=== PATIENT | male | born 1960 | race Native Hawaiian/Other Pacific Islander ===

== ENCOUNTER 2021-04-27 11:16 | Inpatient (IN) | payer BC, OTHER ==
[~2021-04-27] VITALS: Ht 175.3 cm; Wt 78.9 kg
[2021-04-27 11:21] VITALS: BP 123/76; TEMP 98.3
[2021-04-27 12:07] LABS: PLATELET COUNT 323 K/uL (142-355)
[2021-04-27 12:37] LABS: POTASSIUM 3.5 mmol/L (3.6-5.2); SODIUM 132 mmol/L (136-145)
--- NOTE | 2021-04-27 19:57 | NUR ---
PATIENT ADMITTED TO ROOM# 1111 VIA STRETCHER FROM THE ER. PATIENT ALERT AND ORIENTED X 3 AND C/O SHORTNESS OF BREATH AND LOSS OF SENSE OF TASTE AND SMELL X 12 DAYS. PATIENTS OXYGEN SATURATION DROPPED DOWN INTO 80'S AFTER BEING MOVED, RT AT THE BEDSIDE AND INCREASED HIS HIGH FLOW TO 100%. AFTER APPROXIMATELY 20 MINUTES PATIENTS SATS NOW 98-99% AND HIGH FLOW DECREASED BACK DOWN 75% AND PATIENTS OXYGEN SATURATION NOW STAYING AT 96-97% AND PATIENT RESTING WELL AT THIS TIME. PATIENT ORIENTED TO ROOM AND CALL SYSTEM AND VERBALIZES UNDERSTANDING AND DENIES ANY COMPLAINTS OR REQUESTS AT THIS TIME. CALL LIGHT WITHIN REACH. WILL CONTINUE TO MONITOR.
--- NOTE | 2021-04-27 22:14 | NUR ---
PT MOVED FROM ER TO 111 HIS SPO2 WAS IN LOW 80s increased him to 100% at 2029. went back at 2114 pt resting spo2 is 100%. so decreased his fio2 to 75%. zaki continue to monitor.
[2021-04-28] VITALS (7 sets, daily range): BP systolic 104–144; BP diastolic 66–75; TEMP 97.5–98.3; Ht 175.3 cm; Wt 78.9 kg
[2021-04-28 04:22] LABS: PLATELET COUNT 318 K/uL (142-355)
[2021-04-28 04:27] LABS: POTASSIUM 3.7 mmol/L (3.6-5.2)
[2021-04-28 09:45] LABS: PLATELET COUNT 360 K/uL (142-355)
[2021-04-28 10:29] LABS: POTASSIUM 3.7 mmol/L (3.6-5.2)
--- NOTE | 2021-04-28 17:58 | NUR ---
RECEIVED REPORT FROM NURSE Kandace CLEVELAND AT 1400 PRIOR TO TAKING PT. PT A&O. LAYING PRONE IN BED PER PHYSICAL THERAPY TO INCREASE O2 SATS FROM 80s TO 90s. NO NAD NOTED. DENIES ANY PAIN/DISCOMFORT. IVF INFUSING AT 83ML/HR AND IV SITE TO LEFT HAND INTACT WITH NO SWELLING OR REDNESS NOTED. FAMILY VISITING PT AT ROOM WINDOW. PT COMPLIANT WITH MEDS AND TREATMENT. CONTINUE TO MONITOR.
[2021-04-29] VITALS (7 sets, daily range): BP systolic 104–118; BP diastolic 63–70; TEMP 97.3–98.3
[2021-04-29 04:49] LABS: PLATELET COUNT 414 K/uL (142-355)
[2021-04-29 04:52] LABS: POTASSIUM 4.1 mmol/L (3.6-5.2)
--- NOTE | 2021-04-29 05:05 | NUR ---
HELD CPT AT THIS TIME DUE TO SPO2 DROPPING.
--- NOTE | 2021-04-29 07:45 | NUR ---
Pt. RESTING WITH HIGH O2 ON. STATES "I FEEL A LITTLE BETTER. I THOUGGHT I WAS GOING TO ."
--- NOTE | 2021-04-29 11:00 | NUR ---
ASSIST Pt. UP OUT OF BED TO SIT IN CHAIR. O2 SAT DECREASE TO 88 BUT RECOVERED AFTER SITTING FOR 5 MINUTES.
--- NOTE | 2021-04-29 13:45 | NUR ---
REMOVE O2. SAT DECREASED TO 87% RESTING.
--- NOTE | 2021-04-29 15:09 | NUR ---
TURN FIO2 DOWN FROM 100% FROM 80% AND LPM FROM 50 TO 45LPM. PT AT BEDSIDE DOING CPT AT THIS TIME.SATS 99% AND HR 68.
--- NOTE | 2021-04-29 22:24 | NUR ---
DECREASED FIO2 TO 75% SPO2 93% NURSE NOTIFIED.
[2021-04-30 04:28] VITALS: BP 109/64; TEMP 98.1
[2021-04-30 04:41] LABS: POTASSIUM 4.2 mmol/L (3.6-5.2)
[2021-04-30 04:48] LABS: PLATELET COUNT 396 K/uL (142-355)
[2021-04-30 08:00] VITALS: BP 116/71; TEMP 97.5
--- NOTE | 2021-04-30 08:17 | NUR ---
DECREASED PT FIO2 TO 65% AT [address] MANNING.
--- NOTE | 2021-04-30 09:58 | NUR ---
HAD TO INCREASE FIO2 BACK TO 75% AROUND 0830 DUE TO SPO2 DROPPING.
[2021-04-30 12:00] VITALS: BP 118/76; TEMP 97.5
--- NOTE | 2021-04-30 14:40 | NUR ---
04/30/21 1440 AWAKE ALERT WATCHING T.V. PT SAID HE SIT UP ON SIDE OF BED AND IT FELT GOOD TO MOVE AROUND.CALL LIGHT WITH REACH.CC
--- NOTE | 2021-04-30 15:43 | NUR ---
04/30/21 1540 PT FAMILY AT WINDOW TO VISIT BROUGHT SOME CLEAN CLOTHES FOR PATIENT5.NAD NOTED.CC
[2021-04-30 16:00] VITALS: BP 118/75; TEMP 97.8
--- NOTE | 2021-04-30 17:07 | NUR ---
PT FIO2 DROPPED TO 65% AT THIS TIME PER DR. MANNING.
--- NOTE | 2021-04-30 17:26 | NUR ---
04/30/21 1726 PT COUGHING AFTER USING IS WAS ABLE TO SPIT UP WHITE MUCUS.ENCOURAGED TO CONTINUE USING FREQUENTLY.CC
[2021-04-30 20:29] VITALS: BP 152/83; TEMP 98.3
[2021-05-01] VITALS: BP 124/81; TEMP 97.7
--- NOTE | 2021-05-01 01:35 | NUR ---
PT HAS BEEN COUGHING. EXPELLING THICK YELLOW SECRETIONS. PT WAS GIVEN TUSSINEX PO EARLIER. PT RESPONDS TO SMART VEST THERAPY. O2 SAT IS 94 PERCENT.
[2021-05-01 04:24] VITALS: BP 120/75; TEMP 97.7
[2021-05-01 04:53] LABS: PLATELET COUNT 397 K/uL (142-355)
[2021-05-01 05:05] LABS: POTASSIUM 4.3 mmol/L (3.6-5.2)
[2021-05-01 08:00] VITALS: BP 133/81; TEMP 98.1
[2021-05-01 12:00] VITALS: BP 116/72; TEMP 97.6
--- NOTE | 2021-05-01 12:45 | NUR ---
PT'S O2 SAT BEGAIN TO DROP INTO THE MID-LOWER 80'S RANGE. RESPIRATORY WAS CONTACTED AND WENT TO PT'S ROOM. PT WAS EATING LUNCH AND WAS NOT ABLE TO MAINTAIN AN O2 SAT OVER 85%. RESPIRATORY TURNED THE HIGH FLOW UP TO 100% AND WILL TURN IT BACK DOWN AFTER PT IS FINISHED WITH LUNCH.
--- NOTE | 2021-05-01 12:48 | NUR ---
INCREASED PT FIO2 TO 100% WHILE EATING BBECUSE SATS DROPPED INTO 80s. he is now 91%.
--- NOTE | 2021-05-01 14:30 | NUR ---
PT HAS GIVEN HIMSELF A BED BATH USING A BASIN OF WARM WATER, SOAP, AND WASHCLOTH. PT HAS DRESSED HIMSELF AND CALLED TO HAVE CORE MANAGER HOOK HIS TELEMETRY BACK ON. WHEN CORE MANAGER ARRIVED TO THE ROOM, PT WAS LABORED IN BREATHING AND O2 SAT WAS AT 82%. AFTER CORE MANAGER PLACED CLEAN LINENS ON THE BED AND HOOKED PT BACK UP TO TELEMETRY, CORE MANAGER HELPED PT BACK INTO THE BED AND PRACTICED DEEP BREATHING EXERCISES AND REMAINED WITH PT UNTIL O2 SAT WAS AT 87%.
[2021-05-01 16:00] VITALS: BP 124/78; TEMP 97.2
--- NOTE | 2021-05-01 17:07 | NUR ---
PT CALLED TO NURSES' STATION COMPLAINING OF HEARTBURN. PT HAD BEEN GIVEN THIAMINE 20 MG IVP AND FLUVOXINE 50 MG PO 20 MIN PRIOR. FLIGHT TEST SUPERVISOR NOTIFIED PHYSICIAN AND PHYSICIAN ORDERED FOR A GI CONTACT. WHILE FLIGHT TEST SUPERVISOR WAS ADMINISTERING GI COCKTAIL PT STATED THAT THE PAIN WAS AN 8 ON A SCALE OF 0-10 AND IT WAS A BURNING PAIN. PHYSICIAN WAS NOTIFIED AND CAME TO THE PT'S ROOM TO ASSESS. AN EKG WAS ORDERED. WILL CONTINUE TO MONITOR.
--- NOTE | 2021-05-01 18:00 | NUR ---
PT STATES THAT HE IS STILL EXPERIENCING CHEST BUT NOT INTENSE. PT RATED THE PAIN AT A 4 ON A SCALE OF 0-10. WILL CONTINUE TO MONITOR.
--- NOTE | 2021-05-01 20:00 | NUR ---
PM ASSESSMENT WAS COMPLETED. PT WITH NO COMPLAINTS OF CHEST PAIN OR ANY OTHER DISCOMFORT. PT AWAKE SITTING UP ON SIDE OF THE BED. PT IS ADMITTED WITH PNEMONIA/COVID. PT WAS ADMITTED ON THE . THIS IS DAY 5. PT IS RECEIVING REMDESIVIR. PT IS USING HI FLOW OXYGEN. ENCOURAGED PT TO TCDB. PT VOICED UNDERSTANDING. SMART VEST THERAPY IN USE. PT IS COUGHING UP THICK WHITE CLEAR SPUTUM. BEDSIDE TABLE IN EASY REACH. CALL LIGHT IN REACH.
[2021-05-01 20:29] VITALS: BP 116/70; TEMP 97.7
[2021-05-02] VITALS: BP 132/85; TEMP 98.1
[2021-05-02 04:29] VITALS: BP 120/76; TEMP 97.6
[2021-05-02 05:41] LABS: PLATELET COUNT 405 K/uL (142-355)
[2021-05-02 06:16] LABS: POTASSIUM 4.8 mmol/L (3.6-5.2)
--- NOTE | 2021-05-02 06:21 | NUR ---
IV RESTARTED TO PT'S RIGHT HAND WITH 20G .
[2021-05-02 08:00] VITALS: BP 118/67; TEMP 97.9
--- NOTE | 2021-05-02 09:55 | NUR ---
PT CHANGED BACK TO [address] MANNING. POX 92%. PT NURSE INFORMED OF CHANGE.
--- NOTE | 2021-05-02 10:13 | NUR ---
PT IN RM WITH PT PERFORMING CPT
[2021-05-02 12:00] VITALS: BP 98/49; TEMP 98.4
[2021-05-02 16:00] VITALS: BP 121/76; TEMP 97.3
--- NOTE | 2021-05-02 17:30 | NUR ---
PATIENT HIGH FLOW AT 40L @ 50% NC. PATIENT O2 SAT MAINTAINING AT 93-94%. PATIENT SITTING IN HF NAD NOTED. NONLABORED BREATHING NOTED. CALL LIGHT WITHIN REACH. WILL CONTINUE TO MONITOR.
[2021-05-02 19:00] VITALS: BP 120/73; TEMP 98.4
[2021-05-03] VITALS (7 sets, daily range): BP systolic 110–136; BP diastolic 70–88; TEMP 97.6–98.7
[2021-05-03 05:42] LABS: PLATELET COUNT 445 K/uL (142-355)
[2021-05-03 06:08] LABS: POTASSIUM 4.7 mmol/L (3.6-5.2)
--- NOTE | 2021-05-03 07:55 | NUR ---
RESPIRATORY IN PT ROOM DUE TO O2 SAT AT 86-89%. RESPIRATORY CHANGED HIGH FLOW SETTING TO 40L @66%. PT O2 SAT NOW MAINTAINING AT 92-93%. WILL CONTINUE TO MONITOR.
--- NOTE | 2021-05-03 11:22 | NUR ---
FIO2 DROPPED TO 50% FROM 66% PER DR MANNING REQUEST. NURSE TOLD AND NURSE INFORMED OF Pt SpO2 DROPPING TO 91% @ THIS TIME. NO DISTRESS NOTED. DEBBIE DRESS FINISHER
--- NOTE | 2021-05-03 11:30 | NUR ---
DR. MANNING ORDERS TO NOT INCREASE SETTING ON HIFLOW O2 IF PT O2 DESAT, SHE STATES TO ASSESS PT FOR SOB AND IF HR RATE INCREASES AND TO ALLOW PT TO RECOVER BY ASSISTING PT WITH TCDB, WEAN PT DOWN TO NC 3-4L
--- NOTE | 2021-05-03 14:21 | NUR ---
UNABLE TO PLACE NC ON Pt AT THIS TIME DUE TO SpO2 OF 82% ON HFNC. NO DISTRESS NOTED. PHYSICAL THERAPY JUST FINISHED WORKING WITH Pt. Pt TAKING DEEP BREATHES IN TO IMPROVE SpO2 BRINGING IT UP TO 88% ON HHFNC @ 50% FIO2.UNABLE TO WEAN Pt FIO2 AT THIS TIME. DANITZAJ [employer]Y SUPERVISOR
[2021-05-04 03:41] VITALS: BP 122/87; TEMP 97.8
[2021-05-04 04:40] LABS: PLATELET COUNT 425 K/uL (142-355)
[2021-05-04 05:23] LABS: POTASSIUM 4.5 mmol/L (3.6-5.2)
[2021-05-04 08:00] VITALS: BP 115/80; TEMP 97.6
[2021-05-04 12:00] VITALS: BP 132/78; TEMP 97.7
[2021-05-04 16:00] VITALS: BP 102/65; TEMP 98.6
[2021-05-04 20:28] VITALS: BP 105/69; TEMP 97.8
[2021-05-05 00:05] VITALS: BP 100/62; TEMP 98.6
--- NOTE | 2021-05-05 01:22 | NUR ---
PT ADMITTED FOR COVID PNEUMONIA ON 04/27/2021. PT IS PRESENTLY USING 02 VIA NASAL CANNULA. PT'S 02 SATS ARE 90 T0 98 PERCENT. PT DOES DROP IN O2 SATS WHEN GETTING UP OUT OF BED TO [facility]. PT IS RECEIVING PHYSICAL THERAPY. PT DOES RECOVER WHEN ACTIVITY IS COMPLETED. PT ENCOURAGED TO TAKE DEEP BREATHS. PT HAD LARGE STOOL THIS SHIFT. PT IS EATING 100 PERCENT OF HIS MEALS. BEDSIDE TABLE IN EASY REACH.
--- NOTE | 2021-05-05 01:56 | NUR ---
PT UOB TO BSC. PT LARGE BROWN FORMED STOOL. PT USING NC AT 5L . O2 SATS DROP WITH ACTIVITY. RECOVERS QUICKLY THIS TIME WITH INSTRUCTIONS TO TAKE DEEP BREATHS AND REST. PT IS 92 PERCENT WITH REST.
[2021-05-05 04:07] VITALS: BP 100/66; TEMP 98.2
--- NOTE | 2021-05-05 05:07 | NUR ---
PT RESTING USING NC AT 5L.
[2021-05-05 05:18] LABS: PLATELET COUNT 325 K/uL (142-355)
[2021-05-05 05:27] LABS: POTASSIUM 4.3 mmol/L (3.6-5.2)
--- NOTE | 2021-05-05 06:13 | NUR ---
CONTINUES ON NC. RESTING AT PRESENT. PT HAS HAD 2 BM'S THIS SHIFT.
[2021-05-05 08:00] VITALS: BP 107/69; TEMP 97.7
--- NOTE | 2021-05-05 08:45 | NUR ---
05/05/21 0736 TO EXRAY VIA W/C TOLERATED WELL NC AT 5LITERS/MIN 05/05/21 0745 BACK FROM EXRAY VIA W/C. 05/05/21 0825 PHYSICAL THERAPY PRESENT IN ROOM,PT ASSISTED TO CHAIR OXYGEN WENT DOWN TO 88 PERCENT PT STATES HE FEELS GOOD SITTING UP.CC 05/05/21 0848 PT SITTING UP IN CHAIR EATING BREAKFAST OXYGEN DECLINES MID 80.BUTPT STATES HE FEELS FINE.CC
--- NOTE | 2021-05-05 10:01 | NUR ---
05/05/21 1000 PT STANDING UP BATHING OFF OXYGEN SATURATION 88 PERCENT STEADY ON FEET.CALL LIGHT WITHIN REACH.CC
--- NOTE | 2021-05-05 10:36 | NUR ---
05/05/21 1030 PT STANDING UP IN ROOM WALKING AROUND STEADY GAIT GETS SOB ON EXCERTION.ATTEMPTED IV TO LT FA UNSUCCESSFUL.CLEANED AREA AROUND SL TO RT HAND FLUSHED WELL NO REDNESS OR SWELLING NOTED.CC
[2021-05-05 12:00] VITALS: BP 95/58; TEMP 98
--- NOTE | 2021-05-05 13:27 | NUR ---
05/05/21 1315 PT SITTING UP IN CHAIR OXYGEN SATURATION 95 PERCENT.CC
[2021-05-05 16:00] VITALS: BP 109/69; TEMP 98
--- NOTE | 2021-05-05 18:50 | NUR ---
05/05/21 1345 RESP PRESENT IN ROOM TO EVALUATE FOR HOME DISCHARGE WITH OXGEN.RESP STATED PT WALKED ROOM AIR STARTED AT 93 PERCENT THEN OXYGEN ON AMBULATION [address] MANNING AWARE. 05/05/21 1400 OXYGEN LOWERED TO 2LPM PER DR. MARES ORDERS RESP AWARE.CC 05/05/21 1645 OXYGEN TANK BROUGHT TO HOSPITAL PER DR. MARES ORDERS FOR POSSIBLE DISCHARGE TO HOME.CC
--- NOTE | 2021-05-05 19:30 | NUR ---
ROUNDS MADE. PT'S O2 SAT IS 85 PERCENT. PT WAS INSTRUCTED TO TAKE DEEP BREATHES AND TO REPOSITION. O2 SAT CHECKED BY 2 SENSORS. 1935PM O2 SAT INCREASING WITH INTERVENTION. O2 INCREASED TO 92 PERCENT. RESP AND THIS NURSE AT BEDSIDE. BEDSIDE TABLE AND CALL LIGHT IN EASY REACH. PT WS INSTRUCTED TO CALL FOR ASSISTANCE WHEN GETTING UP OUT OF BED. PT VOICED UNDERSTANDING.
[2021-05-05 19:55] VITALS: BP 118/81; TEMP 98.1
--- NOTE | 2021-05-05 22:43 | NUR ---
PT RECEIVED 2100 MEDS. PT WITH NO COMPLAINTS. PT IS IN PLEASANT MOOD AND VOICES THAT "HAPPY TO BE GOING HOME SOON". EMPTIED 400 ML OF YELLOW URINAL. CM WITH HR OF 60 SR AND O2 SAT IS 95 PERCENT. INSTRUCTED PT TO CALL FOR ASSISTANCE. PT VOICED UNDERSTANDING.
[2021-05-06 00:11] VITALS: BP 114/74; TEMP 98
--- NOTE | 2021-05-06 01:50 | NUR ---
PT IS MAINTAINING 02 SATS OF 92 TO 94 WITH O2 AT 3L. RESP INCREASED TO MAINTAIN 02 SAT IN THE 90'S.
--- NOTE | 2021-05-06 02:44 | NUR ---
UP OUT OF BED WITH ASSISTANCE TO BSC. PT STATED THAT HE NEEDS TO HAVE A BM.
[2021-05-06 04:06] VITALS: BP 101/69; TEMP 98
--- NOTE | 2021-05-06 04:23 | NUR ---
RESP CALLED FOR PT WITH O2 SATS OF 89 TO 90 PERCENT. PT WAS GIVEN COMBIVENT INHALER 4 PUFFS. MONITORING 02 SATS. PT IS CALM AND BREATHING. RESPIRATIONS ARE 20 PER MINUTE.
[2021-05-06 05:12] LABS: POTASSIUM 4.3 mmol/L (3.6-5.2)
[2021-05-06 05:22] LABS: PLATELET COUNT 357 K/uL (142-355)
--- NOTE | 2021-05-06 06:28 | NUR ---
PT RESTING, NO COMPLAINTS. DENIES ANY SHORTNESS OF BREATH. X RAY TO COME AND TAKE PATIENT FOR CHEST 2 VIEWS.
[2021-05-06 08:00] VITALS: BP 107/73; TEMP 97.8
--- NOTE | 2021-05-06 08:33 | NUR ---
ASSESSED PT THIS MORNING, FINE CRACKLES ARE AUSCULTATED IN THE LEFT LOWER LOBE OF THE LUNGS, THE REST OF THE LUNG SANTACRUZ ARE CLEAR. PT STILL HAS A PRODUCTIVE COUGH WITH VERY THIN PRODUCTION. PT'S LEG AND FEET ARE COLD TO THE TOUCH BUT HAVE A CAPILLARY REFILL OF <3 SECONDS ON THE TOES AND PULSES ON THE FEET. PT DENIES ANY PAIN AT THIS TIME AND STATES THAT HE IS EXCITED TO GO HOME TODAY TO BE WITH HIS . PT HAS NASAL CANULA ON AT 3 LPM AND SHOWS NO DIFFICULTY IN BREATHING. PT DEMONSTRATED THE PROPER WAY TO USE INHALERS AND TOOK PO MEDICATIONS WITHOUT ANY DIFFICULTY. PT WAS LEFT IN HIGH FOWLERS [employer] TV WITH CALL LIGHT WITHIN REACH. WILL CONTINUE TO MONITOR.
--- NOTE | 2021-05-06 09:33 | NUR ---
PT'S O2 BEGAN TO DROP ON PULSE OX. PHYSICIAN RELATIONS REPRESENTATIVE WENT TO PT'S ROOM. PT IS SITTING UP IN THE CHAIR PRACTICING WITH THE INCENTIVE SPIROMETER AND EXCERCISING LEGS. PT WAS INSTRUCTED TO TAKE A QUICK BREAK AND TAKE SOME DEEP BREATHS BRING O2 BACK UP. WILL CONTINUE TO MONITOR.
--- NOTE | 2021-05-06 09:37 | NUR ---
CHEST X-RAY RESULTS HAVE BEEN RECIEVED AND SENT TO PHYSICIAN. AWAITING FURTHER ORDERS.
--- NOTE | 2021-05-06 11:06 | NUR ---
PHYSICAL THERAPY IS IN THE ROOM WITH PT. PT IS STANDING AND TALKING ON THE PHONE TO HIS OUTSIDE THE WINDOW. PHYSICAL THERAPY REPORTED THAT HIS O2 DROPPED TO 86% WHILE ON THE PHONE BUT REBOUNDED TO 90% SOON HE GOT OFF THE PHONE. PHYSICAL THERAPY NOW HAS PT SITTING UP IN THE CHAIR USING THE PHYSICAL THERAPY BIKE TO EXERCISE.
[2021-05-06 12:00] VITALS: BP 99/62; TEMP 97.7
--- NOTE | 2021-05-06 12:46 | NUR ---
PHYSICIAN WANTS TO ENSURE THAT PT CAN MAINTAIN O2 SATURATION AT ACCEPTABLE LEVEL WHILE PERFORMING ADL'S PRIOR TO BEING DISCHARGED. OT HAS BEEN CONTACTED AND INFORMED OF PHYSICIAN'S REQUEST. WAITING TO HEAR BACK FROM OT.
--- NOTE | 2021-05-06 14:59 | NUR ---
OT HAS BEEN IN TO EVALUATE THE PT. OT REPORTED THAT WHILE PUTTING ON SHOES AND SOCKS THE O2 DROPPED TO 84%. WHILE STANDING AT THE SINK O2 REMAINED AT 88%. OT TOOK THE NASAL CANULA OFF WHILE WALKING TO THE BATHROOM BECAUSE THE TUBING WOULD NOT REACH, THE PT'S O2 REMAINED AT 91% WHILE WALKING. ALL OTHER ACTIVITES PERFORMED THE PT'S O2 REMAINED NO LOWER THAN 90%. PHYSICIAN HAS BEEN MADE AWARE OF EVALUATION.
--- NOTE | 2021-05-06 15:30 | NUR ---
PT HAS RECIEVED DISCHARGE EDUCATION AND INSTRUCTIONS ALONG WITH [employer] TO TAKE TO PREFERRED PHARMACY. PT VERBALIZED UNDERSTANDING OF TEACHING AND WAS PROVIDED [employer]UC[employer] TO TAKE HOME AND REVIEW NEEDED. IV WAS REMOVED WITHOUT ANY DIFFICULTY WITH CATHETER STILL INTACT. PT WAS CONNECTED TO PORTABLE O2 TANK FOR HOME O2 AND SAMPLER FIRST ENSURED THAT O2 TANK WAS WORKING IT SHOULD BEFORE DISCHARGE FROM HOSPITAL. PT WAS TRANSPORTED TO PERSONAL VEHICLE VIA WHEELCHAIR TO HIS . PT WAS ASSISTED INTO THE VEHICLE ALONG WITH PERSONAL BELONGINGS. NAD WAS NOTED DURING DISCHARGE FROM THE HOSPITAL.
== END 2021-05-06 15:42 | disposition home or self-care (01) | DRG 177 ==
LOC: ED 11:16 → MED/SURG 16:22
PROVIDERS: Family Medicine; ADMIT Family Medicine; ATTEND Family Medicine
DX: U07.1 COVID-19 (principal); J12.82 Pneumonia due to coronavirus disease 2019; R06.03 Acute respiratory distress; R09.02 Hypoxemia; E88.09 Other disorders of plasma-protein metabolism, not elsewhere classified; R63.0 Anorexia; R74.8 Abnormal levels of other serum enzymes; K59.09 Other constipation; F32.89 Other specified depressive episodes
CPT/HCPCS: 36415; 36600; 80053; 82553; 82728; 82805; 83605; 83735; 83880; 84100; 84439; 84443; 84481; 84484; 85027; 85379; 86140; 87040; 87070; 87205; 87635; 93005; 94667; 94668; 94760; 96360; 96361; 96365; 96375; 99284; J0456; J0696; J1100; J1450; J1650; J2930; J3410; J3411; U0003